=== PATIENT | female | born 1985 | race Hispanic/Latino ===

== ENCOUNTER 2021-02-27 09:20 | Emergency (ER) | payer OTHER ==
[2021-02-27 21:34] LABS: SARS-CoV-2 PCR by NAA DETECTED (NotDetected)
== END 2021-02-27 11:30 | disposition home or self-care (01) ==
LOC: BURERS 09:20
DX: R09.81 Nasal congestion (principal); R50.9 Fever, unspecified; Z20.822 Contact with and (suspected) exposure to COVID-19
CPT/HCPCS: 99283; U0003; U0005